=== PATIENT | female | born 1975 | race Caucasian/White ===

== ENCOUNTER 2019-06-27 21:44 | Emergency (ER) | payer BC ==
[~2019-06-27] VITALS: Ht 154.9 cm; Wt 53.1 kg
[~2019-06-27 21:44] MED LIST: BIRTHCONTROL; FLOMAX0.4 MG PO; HYDROCODONE-AP1 EAC6 PO; IBUPROFEN 800800 M1 PO; ZOFRAN 4 MG ORAL4 MG PO
[2019-06-27] MEDS ORDERED: ZOFRAN ODT4 MG DISSOLVE (22:04)
[2019-06-27] MEDS ORDERED: NAPROSYN500 M1 PO (22:04)
[2019-06-27 22:27] LABS: ABSOLUTE BASOPHILS 0.1 thou/uL (0.0-0.2); ABSOLUTE MONOCYTES 0.9 thou/uL (0.0-1.2); ABSOLUTE NEUTROPHILS 10.1 thou/uL (1.6-8.1); BASOPHILS 0.4 %; EOSINOPHILS 0.1 %; HEMATOCRIT 40.4 % (37.0-47.0); HEMOGLOBIN 14.2 gm/dL (12.0-15.0); LYMPHOCYTES 8.4 %; MCH 31.1 pg (26.0-34.0); MCHC 35.3 g/dL (28.0-37.0); MCV 88.2 fL (80.0-100.0); MONOCYTES 7.2 %; MPV 10.1 fl. (7.2-11.1); NUCLEATED RBCS 0 /100WBC; PLATELET COUNT* 238 thou/uL (150-400); POLYS 83.9 %; RBC 4.58 mil/uL (4.20-5.00); RDW-CV 12.6 % (10.5-14.5); WBC 12.1 thou/uL (4.0-11.0)
[2019-06-27 22:31] LABS: URINE BILIRUBIN NEGATIVE (Negative); URINE BLOOD TRACE (Negative); URINE CLARITY CLEAR; URINE COLOR YELLOW; URINE GLUCOSE-RANDOM NEGATIVE (Negative); URINE KETONES NEGATIVE (Negative); URINE LEUKOCYTES-REFLEX NEGATIVE (Negative); URINE NITRITE-REFLEX NEGATIVE (Negative); URINE PROTEIN NEGATIVE (Negative); URINE UROBILINOGEN 0.2 E.U./dl (0.2-1.0)
[2019-06-27 22:40] LABS: ALBUMIN 4.5 g/dL (3.4-5.0); CREATININE 0.9 mg/dL (0.6-1.3); TOTAL BILIRUBIN 0.4 mg/dL (<0.1-1.0); TOTAL PROTEIN 7.1 g/dL (6.4-8.2)
[2019-06-28 00:27] VITALS: BP 122/72
--- NOTE | 2019-06-28 12:37 | EKG ---
[place] [address] ELECTROCARDIOGRAM REPORT Name: CARMELINA BAKER [id number] Admission: 06/27/19 Attend Phys: Discharge: 06/28/19 Date of : 71 Report #: [id number] THIS REPORT FOR: //name// [facility] ED Test Date: 2019-06-27 Test Time: 23:04:19 Pat Name: CARMELINA BAKER Department: Room: Gender: F [employer] Operator: : 1975 Requested By: Andres Sumner Order Number: [id number] MD: Paulo Platt Measurements Intervals [place] Rate: 80 P: 70 SD: 146 QRS: 8 QRSD: 97 T: 63 QT: 410 QTc: 473 Interpretive Statements Sinus rhythm No previous ECG available for comparison Electronically Signed On 06-28-2019 12:36:49 CONVEYOR OPERATOR by Paulo Pltat [email or web address] <ELECTRONICALLY SIGNED> By: Paulo Platt MD, [facility] 06/28/19 1236 [id number] Paulo Platt MD, FACC /EPI
== END 2019-06-28 00:28 | disposition home or self-care (01) ==
LOC: M.ERS 21:44
PROVIDERS: Family Medicine
DX: R10.11 Right upper quadrant pain (principal); R19.7 Diarrhea, unspecified; R11.0 Nausea; Z88.2 Allergy status to sulfonamides; Z87.442 Personal history of urinary calculi